=== PATIENT | male | born 1985 | race American Indian/Alaskan Native ===

== ENCOUNTER 2016-06-03 20:03 | Emergency (ER) | payer OTHER ==
[2016-06-03] MEDS ORDERED: TYLENOL ONE (20:09)
[2016-06-03] MEDS ORDERED: TYLENOL PO ONE (20:10)
[2016-06-03] MEDS ORDERED: MOTRIN PO ONE (22:30)
[2016-06-03] MEDS ORDERED: FLEXERIL PO ONE (22:30)
--- NOTE | 2016-06-03 22:34 | Emergency Department Report ---
HPI - General Chief Complaint: Fever Time Seen by Provider: 06/03/16 22:29 - HPI HPI: Patient is a 30-year-old male who presents to ED complaining of nonproductive cough, nausea and fever 1 day. Patient states yesterday while at work he felt feverish. States that he has been having intermittent fever and chills since yesterday. Patient describes his cough as a dry nonproductive cough. Patient states he has no allergies to any medications currently takes no medications. Patient denies chest pain, shortness of breath, dizziness, abdominal pain, vomiting, headache, ED Past Medical Hx - Past Medical History Previous Medical History?: No - Surgical History Past Surgical History?: No - Social History Smoking Status: Never Smoker Substance Use Type: None - Medications Home Medications: Home Medications Medication Instructions Recorded Confirmed Last Taken Type Amoxicillin [Trimox CAP] 500 mg PO Q8H #21 capsule 06/23/13 Unknown Rx HYDROcodone/APAP 5-325 [[place] 1 each PO Q6HR PRN #8 tablet 06/23/13 Unknown Rx 5-325 mg TAB] Promethazine [Phenergan] 25 mg PO Q6H PRN #10 tablet 06/23/13 Unknown Rx Cyclobenzaprine [Flexeril 10 MG 10 mg PO QHS #20 tablet 06/03/16 Unknown Rx TAB] Ibuprofen [Motrin 400 MG tab] 800 mg PO Q8H #40 tablet 06/03/16 Unknown Rx Phenylephrine/Dm/Acetaminop/GG 1 each PO TID #30 tablet 06/03/16 Unknown Rx [Tylenol Cold & Flu Severe Cplt] Promethazine /Codeine 5 ml PO Q6H PRN #60 ml 06/03/16 Unknown Rx [Phenergan/Codeine 6.25-10 mg/5 ml] ED Review of Systems ROS: Stated complaint: FLU SYMPTOMS Other details as noted in HPI Constitutional: denies: chills, fever Eyes: denies: eye pain, eye discharge, vision change ENT: denies: ear pain, throat pain Respiratory: denies: cough, shortness of breath, wheezing Cardiovascular: denies: chest pain, palpitations Endocrine: no symptoms reported Gastrointestinal: denies: abdominal pain, nausea, diarrhea, constipation Genitourinary: denies: urgency, dysuria, frequency, hematuria, discharge Musculoskeletal: denies: back pain, joint swelling, arthralgia, myalgia Skin: denies: rash, lesions Neurological: denies: headache, weakness, numbness, paresthesias, confusion, vertigo Psychiatric: denies: anxiety, depression Hematological/Lymphatic: denies: easy bleeding, easy bruising Physical Exam - Physical Exam Vital Signs: Vital Signs 06/03/16 06/03/16 20:11 20:19 Temperature 100.2 F H Pulse Rate 115 H Respiratory 18 18 Rate Blood Pressure 148/90 [Right] O2 Sat by Pulse 100 Oximetry Physical Exam: GENERAL: Alert and oriented x3, no apparent distress, Normal Gait, atraumatic. HEAD: Head is normocephalic and a-traumatic. EYES: Extra ocular muscles are intact. Pupils are equal, round, and reactive to light and accommodation. EARS: symetrical, atraumatic, non tender, ear canal clear and moderate cerumen, tympanic membrance non inflamed. gross auditory nml bilaterally. NOSE: Nose symetrical, Nontender,Nares appeared normal. MOUTH:Mouth is well hydrated and without lesions. Tonsils nonerythematous or swollen, Uvula midline, Tongue not elevated. Mucous membranes are moist. Posterior pharynx clear, no exudate or lesions. Patent airways. NECK: Supple. Non edematous, No carotid bruits. No lymphadenopathy or thyromegaly. LUNGS: Symetrical with respiration, No wheezing, no rales or crackles, CTAB. HEART: S1, S2 present, regular rate and rhythm without murmur, no rubs, no gallops. ABDOMEN: No organomegaly was noted,Positive bowel sounds, soft, and non- distended. . Nontender to palpation on all Quadrants, NO CVA tenderness. Tenderness palpation of the latissimus dorsi muscles bilaterally. EXTREMITIES/MUSCULOSKELETAL: No cyanosis, clubbing, rash, lesions or edema. Full ROM bilaterally. UE/LE Pulses 2+ bilaterally. NEUROLOGIC: No focal Deficit, Cranial nerves II through XII are grossly intact. No loss of sensation, PSYCHIATRIC: Mood is congruent with affect, denies suicidal or homicidal ideations. SKIN: Warm and dry, No lesions, No ulceration or induration present. ED Course Vital Signs 06/03/16 06/03/16 20:11 20:19 Temperature 100.2 F H Pulse Rate 115 H Respiratory 18 18 Rate Blood Pressure 148/90 [Right] O2 Sat by Pulse 100 Oximetry ED Medical Decision Making - Medical Decision Making 30-year-old male presents with bronchitis. ED course: Patient received 800 mg of Motrin and Flexeril for muscle spasm that patient developed during examination. Discussed with patient to increase fluids and drink plenty of water. Pulse rate elevated otherwise Vital signs stable. Fever responsive to Tylenol 1 L of normal saline to patient. Pulse rate reduced prior to discharge Discussed patient take Tylenol every 6 hours for pain and fever. Discussed patient with follow-up with primary care physician. Discussed the patient to continue taking medication for symptomatic relief. Discussed the patient's symptoms worsen or new symptoms arise such as shortness of breath dizziness increase fever of 102 to return to ED. Patient sent home with Motrin and Flexeril for myalgia. Discussed wearing a back brace while at work. Critical care attestation.: If time is entered above; I have spent that time in minutes in the direct care of this critically ill patient, excluding procedure time. ED Disposition Clinical Impression: Bronchitis, Myalgia Disposition: DISCHARGED TO HOME OR SELFCARE Is pt being admited?: No Does the pt Need Aspirin: No Condition: Stable Instructions: Analgesic/Antihistamine/Decongestant (By mouth), Chronic Bronchitis (ED) Additional Instructions: Follow-up with primary care physician. Particular medication as prescribed. If symptoms worsen return to ED. Prescriptions: Cyclobenzaprine [Flexeril 10 MG TAB] 10 mg PO QHS #20 tablet Ibuprofen [Motrin 400 MG tab] 800 mg PO Q8H #40 tablet Phenylephrine/Dm/Acetaminop/GG [Tylenol Cold & Flu Severe Cplt] 1 each PO TID # 30 tablet Promethazine /Codeine [Phenergan/Codeine 6.25-10 mg/5 ml] 5 ml PO Q6H PRN #60 ml PRN Reason: cough Referrals: PRIMARY CARE, [Primary Care Provider] - 3-5 Days BRYON ASKEW MD [Referring] - 3-5 Days RENEE PERKINS MD [Referring] - 3-5 Days [facility] [Outside] - 3-5 Days [facility] [Outside] - 3-5 Days [facility] [Outside] - 3-[address] [facility] [Outside] - 3-5 Days Forms: Work/School Release Form(ED) Time of Disposition: 23:02
[2016-06-03] MEDS ORDERED: NACL 0.9% 1000 ML 1,000 ML IV ONE (23:23)
[2016-06-04 01:33] VITALS: BP 123/69
== END 2016-06-04 02:23 | disposition home or self-care (01) ==
LOC: ED 20:03
DX: J40 Bronchitis, not specified as acute or chronic (principal); M79.1 Myalgia
CPT/HCPCS: 96360; 96361; 99283; J7030

== ENCOUNTER 2016-12-24 16:46 | Emergency (ER) | payer OTHER ==
[2016-12-24] MEDS ORDERED: DUONEB *Not for PRN Use IH ONE ×2 (22:05→23:18)
[2016-12-24] MEDS ORDERED: MOTRIN PO ONE (22:07)
--- NOTE | 2016-12-24 22:09 | Emergency Department Report ---
- General Chief Complaint: Upper Respiratory Infection Stated Complaint: FLU Time Seen by Provider: 12/24/16 22:00 Source: patient Mode of arrival: Ambulatory Limitations: No Limitations - History of Present Illness Initial Comments: 30-year-old male with 2 days worth of worsening sore throat cough fever chills. Denies chest pain nausea vomiting. He does complain of sore throat and myalgias. MD Complaint: fever, cough, sore throat, rhinorrhea, nasal congestion -: days(s) (2) Severity: moderate Improves With: nothing Associated Symptoms: fever, chills, myalgias, rhinorrhea, nasal congestion, sore throat, cough, shortness of breath. denies: diaphoresis, headache, stiff neck, chest pain, abdominal pain, nausea, diarrhea, dysuria, rash, confusion, right sweats, weight loss, epistaxis, hoarseness, ear pain - Related Data Previous Rx's Medication Instructions Recorded Last Taken Type Amoxicillin [Trimox CAP] 500 mg PO Q8H #21 capsule 06/23/13 Unknown Rx HYDROcodone/APAP 5-325 [[place] 1 each PO Q6HR PRN #8 tablet 06/23/13 Unknown Rx 5-325 mg TAB] Promethazine [Phenergan] 25 mg PO Q6H PRN #10 tablet 06/23/13 Unknown Rx Cyclobenzaprine [Flexeril 10 MG 10 mg PO QHS #20 tablet 06/03/16 Unknown Rx TAB] Ibuprofen [Motrin 400 MG tab] 800 mg PO Q8H #40 tablet 06/03/16 Unknown Rx Phenylephrine/Dm/Acetaminop/GG 1 each PO TID #30 tablet 06/03/16 Unknown Rx [Tylenol Cold & Flu Severe Cplt] Promethazine /Codeine 5 ml PO Q6H PRN #60 ml 06/03/16 Unknown Rx [Phenergan/Codeine 6.25-10 mg/5 ml] ALBUTEROL Inhaler [ProAir HFA 2 puff IH QID PRN #1 inhalation 12/24/16 Unknown Rx Inhaler] Ibuprofen [Motrin 600 MG tab] 600 mg PO ONCE #30 tablet 12/24/16 Unknown Rx predniSONE [Deltasone] 40 mg PO ONCE #8 tablet 12/24/16 Unknown Rx Allergies Allergy/AdvReac Type Severity Reaction Status Date / Time No Known Allergies Allergy Verified 12/24/16 16:50 ED Review of Systems ROS: Stated complaint: FLU Other details as noted in HPI Comment: All other systems reviewed and negative Constitutional: denies: chills, fever Eyes: denies: eye pain, eye discharge, vision change ENT: denies: ear pain, throat pain Respiratory: denies: cough, shortness of breath, wheezing Cardiovascular: denies: chest pain, palpitations Endocrine: no symptoms reported Gastrointestinal: denies: abdominal pain, nausea, diarrhea Genitourinary: denies: urgency, dysuria Musculoskeletal: denies: back pain, joint swelling, arthralgia Skin: denies: rash, lesions Neurological: denies: headache, weakness, paresthesias Psychiatric: denies: anxiety, depression Hematological/Lymphatic: denies: easy bleeding, easy bruising ED Past Medical Hx - Past Medical History Previous Medical History?: No - Surgical History Past Surgical History?: No - Family History Family history: no significant - Social History Smoking Status: Never Smoker Substance Use Type: None - Medications Home Medications: Home Medications Medication Instructions Recorded Confirmed Last Taken Type Amoxicillin [Trimox CAP] 500 mg PO Q8H #21 capsule 06/23/13 Unknown Rx HYDROcodone/APAP 5-325 [[place] 1 each PO Q6HR PRN #8 tablet 06/23/13 Unknown Rx 5-325 mg TAB] Promethazine [Phenergan] 25 mg PO Q6H PRN #10 tablet 06/23/13 Unknown Rx Cyclobenzaprine [Flexeril 10 MG 10 mg PO QHS #20 tablet 06/03/16 Unknown Rx TAB] Ibuprofen [Motrin 400 MG tab] 800 mg PO Q8H #40 tablet 06/03/16 Unknown Rx Phenylephrine/Dm/Acetaminop/GG 1 each PO TID #30 tablet 06/03/16 Unknown Rx [Tylenol Cold & Flu Severe Cplt] Promethazine /Codeine 5 ml PO Q6H PRN #60 ml 06/03/16 Unknown Rx [Phenergan/Codeine 6.25-10 mg/5 ml] ALBUTEROL Inhaler [ProAir HFA 2 puff IH QID PRN #1 inhalation 12/24/16 Unknown Rx Inhaler] Ibuprofen [Motrin 600 MG tab] 600 mg PO ONCE #30 tablet 12/24/16 Unknown Rx predniSONE [Deltasone] 40 mg PO ONCE #8 tablet 12/24/16 Unknown Rx ED Physical Exam - General Limitations: No Limitations General appearance: alert, in no apparent distress - Head Head exam: Present: atraumatic, normocephalic - Eye Eye exam: Present: normal appearance - ENT ENT exam: Present: mucous membranes moist - Neck Neck exam: Present: normal inspection. Absent: lymphadenopathy - Respiratory Respiratory exam: Present: wheezes. Absent: respiratory distress - Cardiovascular Cardiovascular Exam: Present: normal rhythm, tachycardia, normal heart sounds. Absent: systolic murmur, diastolic murmur, rubs, gallop - GI/Abdominal GI/Abdominal exam: Present: soft, normal bowel sounds. Absent: distended, tenderness - Rectal Rectal exam: Present: deferred - Extremities Exam Extremities exam: Present: normal inspection - Back Exam Back exam: Present: normal inspection - Neurological Exam Neurological exam: Present: alert, oriented X3 - Psychiatric Psychiatric exam: Present: normal affect, normal mood - Skin Skin exam: Present: warm, dry, intact, normal color. Absent: rash ED Course Vital Signs 12/24/16 16:51 Temperature 98.6 F Pulse Rate 109 H Respiratory 20 Rate Blood Pressure 175/98 O2 Sat by Pulse 98 Oximetry ED Medical Decision Making - Medical Decision Making 30-year-old male with URI-type symptoms however he is wheezing for the first time ever. Given that he is new onset wheezing plan to get a chest x-ray and we 'll treat with nebulizers. Plan to give him NSAIDs for myalgias. Chest x-ray clear. Improved on nebulizer but still wheezing significantly. Plan to give additional neb and prednisone here and will discharge him with 4 days of steroids as an outpatient. Discussed with patient and he is comfortable with plan. Portions of this chart were dictated with dictation software. There may be dictation errors contained within this note. Critical care attestation.: If time is entered above; I have spent that time in minutes in the direct care of this critically ill patient, excluding procedure time. ED Disposition Clinical Impression: Wheezing, URI (upper respiratory infection) Disposition: DC-01 TO HOME OR SELFCARE Is pt being admited?: No Condition: Stable Instructions: Upper Respiratory Infection (ED), Reactive Airways Disease (ED) Prescriptions: ALBUTEROL Inhaler [ProAir HFA Inhaler] 2 puff IH QID PRN #1 inhalation PRN Reason: Shortness Of Breath Ibuprofen [Motrin 600 MG tab] 600 mg PO ONCE #30 tablet predniSONE [Deltasone] 40 mg PO ONCE #8 tablet Referrals: PRIMARY CARE, [Primary Care Provider] - 3-5 Days
[2016-12-24] MEDS ORDERED: DELTASONE PO ONE (23:18)
--- NOTE | 2016-12-24 23:22 | XRay Report ---
FINAL REPORT PROCEDURE: XR CHEST 1V AP TECHNIQUE: Chest radiograph anteroposterior view. CPT 68761 HISTORY: wheezing, cough COMPARISON: No prior studies are available for comparison. FINDINGS: Heart: Normal. Mediastinum/Vessels: Normal. Lungs/Pleural space: Normal. Bony thorax: No acute osseous abnormality. Life support devices: None. IMPRESSION: No acute cardiopulmonary abnormality.
[2016-12-25 01:06] VITALS: BP 142/84
== END 2016-12-25 00:03 | disposition home or self-care (01) ==
LOC: ED 16:46
DX: R06.2 Wheezing (principal); J06.9 Acute upper respiratory infection, unspecified
CPT/HCPCS: 71010; 94640; 99283; J7512